=== PATIENT | male | born 1985 | race Caucasian/White ===

== ENCOUNTER 2016-12-07 10:38 | Emergency (ER) | payer BC ==
--- NOTE | 2016-12-07 13:12 | UC ---
Back Pain HPI - HPI Summary HPI Summary: 31 y/o male presents to the urgent care c/o lower back pain for the past week after doing heavy lifting. 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 Today pain is 9/10 throbbing and radiating to the RT leg with a tingling sensation on RT foot. Pain is worse with bending. Patient denies urinary symptoms, saddle anesthesia, Hx of STDs. SOB, chest pain. N/V/D. He had similar symptoms 6 years ago, but it resolved. - History of Current Complaint Chief Complaint: UCBackPain Stated Complaint: BACK PAIN Time Seen by Provider: 12/07/16 12:47 Hx Obtained From: Patient Onset/Duration: Sudden Onset Timing: Constant, Lasting Days Severity Initially: Mild Severity Currently: Moderate Pain Intensity: 9 Pain Scale Used: 0-10 Numeric Character: Sharp, Throbbing Aggravating: Movement, Lifting, Bending Alleviating: Rest Associated Signs And Symptoms: Positive: Tingling, Pain with Weight Bearing. Negative: Swelling, Redness, Fever, Flank Pain, Bladder Incontinence, Bowel Incontinence - Risk Factors AAA Risk Factors: Negative TAD Risk Factors: Negative Cauda Equina Risk Factors: Negative Epidural Abscess Risk Factors: Negative - Allergies/Home Medications Allergies/Adverse Reactions: Allergies Allergy/AdvReac Type Severity Reaction Status Date / Time No Known Allergies Allergy Verified 12/07/16 11:46 PMH/Surg Hx/FS Hx/Imm Hx Previously Healthy: Yes - Surgical History Surgical History: None - Family History Family History: Breast cancer and Prostate cancer - Social History Occupation: Employed Full-time Lives: With Family Alcohol Use: Weekly Substance Use Type: None Smoking Status (MU): Heavy Every Day Tobacco Smoker Amount Used/How Often: 1 ppd Review of Systems Constitutional: Negative Skin: Negative Eyes: Negative ENT: Negative Respiratory: Negative Cardiovascular: Negative Gastrointestinal: Negative Genitourinary: Negative Motor: Negative Neurovascular: Negative Musculoskeletal: Other: - RT sided lower back pain Neurological: Negative Psychological: Negative All Other Systems Reviewed And Are Negative: Yes Physical Exam Triage Information Reviewed: Yes Appearance: Well-Appearing, No Pain Distress, Well-Nourished, Thin Vital Signs: Initial Vital Signs Temp 98.2 F 12/07/16 11:39 Pulse 88 12/07/16 11:39 Resp 16 12/07/16 11:39 BP 121/76 12/07/16 11:39 Pulse Ox 99 12/07/16 11:39 Vital Signs Reviewed: Yes Eyes: Positive: Conjunctiva Clear - PERRLA, EOMI. fundi grossly intact ENT Exam: Normal ENT: Positive: Normal ENT inspection, Hearing grossly normal, Pharynx normal, TMs normal Dental Exam: Normal Neck exam: Normal Neck: Positive: Supple, Nontender, No Lymphadenopathy Respiratory Exam: Normal Respiratory: Positive: Chest non-tender, Lungs clear, Normal breath sounds Cardiovascular Exam: Normal Cardiovascular: Positive: RRR, No Murmur, Pulses Normal Abdominal Exam: Normal Abdomen Description: Positive: Nontender, No Organomegaly, Soft. Negative: CVA Tenderness (R), CVA Tenderness (L) Bowel Sounds: Positive: Present Musculoskeletal: Positive: Other: - Back: Normal inspection, no scoliosis or kyphosis. Decrease ROM on felxion and extension of back. Positive tenderness on deep palpation of the RT paraspinal muscles at the level of L5-S1 and mild swelling observed, no erythema or rash observe. Positive RT leg test due to pain. Positive pulses of lower extremities, positive sensation, positive strength and capillary refill. Neurological Exam: Normal Psychological Exam: Normal Skin Exam: Normal Back Pain Course/Dx - Course Course Of Treatment: 31 y/o male presents to the urgent care c/o lower back pain for the past week after doing heavy lifting. Patient denies any bowel or urinary dysfunction. Hx obtained. PE abnormal finding:Back: Normal inspection , no scoliosis or kyphosis. Decrease ROM on flexion and extension and lateral rotation of back limited due to pain. No CVA tenderness or flank echymosis observed.Positive tenderness on deep palpation of the RT paraspinal muscles at the level of L5-S1 and mild swelling observed, no erythema or rash observe. Positive RT leg test due to pain. Positive pulses of lower extremities, positive sensation, positive strength and capillary refill. Pt given a Toradol 60mg IM inj. to alleviated pain and swellling. Pt Afraid of needles and felt mild dizziness while IM inj given by the Nurse. Pt layed on the examining table and felt better after 10 min. Then was taken to the X-ray room. Lumbosacral X- ray ordered. Impression: Probable B/L Pars Defect at L5. No appreciable Spondyloesthesis. Pt Rx Medrol dose juan, Flexeril 10 mg PO and Naproxen 500mg PO BID to alleviate symptoms. Pt instructed on medications and Advised to wear a back support, avoid heavy lifting and strenuous activity. Given the [facility] [place] referral # to schedule an appt with a PCP to f/u in 1 week for further evaluation and treatment. Pt understood and agreed. Patient ambulated out from the with a good steady walk w/o any assistance of any devises. - Differential Dx/Diagnosis Differential Diagnosis/HQI/PQRI: Cauda Equina Syndrome, Herniated Disc, Strain, Sprain, Other - spinal radiculopathy, Provider Diagnoses: Acute lower back pain - Physician Notifications Discussed Care With: Alfredo Hamilton - Dr Hamilton agreed with Pt care and treatment. Discharge - Discharge Plan Condition: Stable Disposition: HOME Prescriptions: Cyclobenzaprine TAB* [Flexeril 10 MG TAB*] 10 mg PO TID PRN #21 tab PRN Reason: Spasms Methylprednisolone [Medrol Dosepak 4 MG*] 4 mg PO .SEE JU[employer] #1 tab Naproxen TAB* [Naprosyn 250 mg TAB*] 500 mg PO BID #14 tab Patient Education Materials: Acute Low Back Pain (ED), Lower Back Exercises (ED ) Forms: *Work Release Referrals: No Primary Care Phys,NOPCP [Primary Care Provider] - [facility] [place] PHYSICIAN REFERRAL [Outside] Additional Instructions: Please take medications as directed to alleviate symptoms, rest, wear the back support at all times. Avoid heavy lifting or strenuous exercise for 1 week. Make an appt with a PCP from the [facility] physician referral center for further evaluation and treatment.
[2016-12-07] MEDS ORDERED: Ketorolac INJ* 60 MG/2 ML VIAL IM ONE (13:20)
[2016-12-07 13:28] VITALS: BP 113/68
--- NOTE | 2016-12-07 13:34 | RAD ---
HISTORY: Low back pain COMPARISONS: October 26, 2010 VIEWS: 3 , Frontal, lateral, and coned-down lateral sacral views of the lumbar spine FINDINGS: ALIGNMENT: The alignment is normal. VERTEBRAL BODIES: There are probable bilateral pars defects at L5. JOINTS: The facet joints are normal. INTERVERTEBRAL DISCS: The intervertebral disc heights are normal. SOFT TISSUE: Unremarkable. OTHER: The pelvis is unremarkable. The lung bases are clear. IMPRESSION: PROBABLE BILATERAL PARS DEFECTS AT L5. NO APPRECIABLE SPONDYLOLISTHESIS
== END 2016-12-07 14:06 | disposition home or self-care (01) ==
LOC: UCCORT 10:38
DX: M54.5 Low back pain (principal); Z72.0 Tobacco use
CPT/HCPCS: 72100; 96372; 99202; G0463; J1885